=== PATIENT | female | born 1995 | race American Indian/Alaskan Native ===

== ENCOUNTER 2021-04-08 08:22 | Emergency (ER) | payer MEDICAID ==
[~2021-04-08] VITALS: Ht 162.6 cm; Wt 72.6 kg
[~2021-04-08 08:22] MED LIST: BACTRIM DS TAB1 EACH PO; CLEOCIN HCL300 MG PO; NORCO 5-325 TA1 EACH PO
== END 2021-04-08 09:26 | disposition home or self-care (01) ==
LOC: ED 08:22
DX: U07.1 COVID-19 (principal); Z88.0 Allergy status to penicillin
CPT/HCPCS: 99283; A9270; C9803; U0003